=== PATIENT | female | born 1935 | race Caucasian/White ===

== ENCOUNTER 2016-05-07 09:25 | Day surgery (SDC) | payer MEDICARE, OTHER ==
[~2016-05-07 09:25] MED LIST: CALAN SR180 M1 PO; WELCHOL625 M1 PO
[2016-05-07 11:13] LABS: ANION GAP 13 mmol/L (0-20); BLOOD UREA NITROGEN 12 mg/dl (6-24); CALCIUM 8.3 mg/dl (8.5-10.5); CARBON DIOXIDE-VENOUS 24 mmol/L (22-32); CHLORIDE 113 mmol/l (96-110); CREATININE 0.74 mg/dl (0.50-1.10); GLUCOSE 97 mg/dL (70-110); SODIUM 146 mmol/L (135-145); eGFR VALUE FOR BLACK 90 mL/Min
[2016-05-07 11:14] LABS: POTASSIUM 3.6 mmol/L (3.7-5.1)
== END 2016-05-07 18:20 ==
LOC: ENDOS 09:25 → SHSB 09:26 → ORW 16:05 → SHSB 17:10
PROVIDERS: Anesthesiology
PROC: 0DBK8ZZ Excision of Ascending Colon, Via Natural or Artificial Opening Endoscopic (ICD-10-PCS; principal; 2016-05-07)
PROC: 0DBN8ZZ Excision of Sigmoid Colon, Via Natural or Artificial Opening Endoscopic (ICD-10-PCS; 2016-05-07)
PROC: 065Y0ZC Destruction of Hemorrhoidal Plexus, Open Approach (ICD-10-PCS; 2016-05-07)
DX: D12.2 Benign neoplasm of ascending colon (principal); D12.5 Benign neoplasm of sigmoid colon; K64.8 Other hemorrhoids; I10 Essential (primary) hypertension; R55 Syncope and collapse; Z79.899 Other long term (current) drug therapy; Z88.1 Allergy status to other antibiotic agents; Z90.49 Acquired absence of other specified parts of digestive tract; Z90.710 Acquired absence of both cervix and uterus; Z95.0 Presence of cardiac pacemaker; Z98.890 Other specified postprocedural states